=== PATIENT | male | born 1930 | race Caucasian/White ===

== ENCOUNTER 2020-07-15 15:17 | Emergency (ER) | payer MEDICARE, BC ==
[~2020-07-15] VITALS: Ht 170.2 cm; Wt 74.0 kg
[~2020-07-15 15:17] MED LIST: ASPI81TA52 PO; ATOR10TA PO; IBUP-1984 PO; METO25TA6 PO; ROPI1TAB2 PO; ZOLP10TA5 PO
[2020-07-15 16:05] LABS: BASOPHILS # (AUTO) 0.1 X10'3 (0-0.2); BASOPHILS % (AUTO) 1.2 % (0-1); EOSINOPHILS # (AUTO) 0.3 X10'3 (0-0.9); EOSINOPHILS % (AUTO) 4.7 % (0-6); HEMATOCRIT 47.2 % (42.0-52.0); HEMOGLOBIN 15.9 g/dl (14.0-17.9); LYMPHOCYTES # (AUTO) 1.8 X10'3 (1.1-4.8); LYMPHOCYTES % (AUTO) 26.5 % (21-51); MEAN CORPUSCULAR HEMOGLOBIN 32.8 PG (27.0-31.0); MEAN CORPUSCULAR HGB CONC 33.6 g/dL (33.0-36.5); MEAN CORPUSCULAR VOLUME 97.7 FL (78-98); MEAN PLATELET VOLUME 8.1 FL (7.4-10.4); MONOCYTES # (AUTO) 0.6 X10'3 (0-0.9); MONOCYTES % (AUTO) 9.3 % (2-12); NEUTROPHILS % (AUTO) 58.3 % (42-75); PLATELET COUNT 148 X10'3 (140-440); RED BLOOD COUNT 4.83 X10'6 (4.70-6.10); RED CELL DISTRIBUTION WIDTH 14.1 % (11.5-14.5); WHITE BLOOD COUNT 6.9 X10'3 (4.5-11.0)
[2020-07-15] MEDS ORDERED: metoprolol tartrate 1mg/ml inj IV ONE (16:25)
[2020-07-15 17:04] LABS: ALANINE AMINOTRANSFERASE 27 U/L (12-78); ALBUMIN 4.2 G/DL (3.4-5.0); ALBUMIN/GLOBULIN RATIO 1.1 (1.1-1.5); ALKALINE PHOSPHATASE 155 IU/L (46-116); ANION GAP 10 (8-16); ASPARTATE AMINO TRANSFERASE 25 U/L (10-37); BILIRUBIN,TOTAL 0.5 MG/DL (0.1-1.0); BLOOD UREA NITROGEN 19 MG/DL (7-18); CALCIUM 9.1 MG/DL (8.5-10.1); CHLORIDE 106 MMOL/L (99-107); CREATININE 1.46 MG/DL (0.60-1.10); GLUCOSE 102 MG/DL (70-104); POTASSIUM 4.1 MMOL/L (3.5-5.1); SODIUM 141 MMOL/L (135-145); TOTAL CARBON DIOXIDE 25.1 MMOL/L (24-32); TOTAL PROTEIN 8.1 G/DL (6.4-8.2); eGFR 46 ML/MIN
[2020-07-15] MEDS ORDERED: APIX5TAB3 PO (18:12)
[2020-07-15] MEDS ORDERED: METO-467 PO (18:12)
[2020-07-15] MEDS ORDERED: apixaban 5mg tablet PO STA (18:13)
[2020-07-15 18:36] VITALS: BP 106/67
== END 2020-07-15 18:38 | disposition home or self-care (01) ==
LOC: ER 15:18
DX: I48.91 Unspecified atrial fibrillation (principal); E78.00 Pure hypercholesterolemia, unspecified; Z79.82 Long term (current) use of aspirin; Z79.899 Other long term (current) drug therapy
CPT/HCPCS: 36415; 71045; 80053; 83880; 84484; 85025; 93005; 96374; 99285; J3490

== ENCOUNTER 2020-07-31 10:49 | Emergency (ER) | payer MEDICARE, BC ==
[~2020-07-31] VITALS: Ht 167.6 cm; Wt 75.0 kg
[~2020-07-31 10:49] MED LIST changes: +APIX5TAB3 PO; +METO-467 PO
[2020-07-31] MEDS ORDERED: lactulose 20gm/30ml cup PO ONE (11:20)
[2020-07-31] MEDS ORDERED: polyethylene glycol 3350 17gm powd pack PO STA (11:20)
[2020-07-31] MEDS ORDERED: POLY17PO10 PO (12:10)
[2020-07-31 12:21] VITALS: BP 153/66
== END 2020-07-31 12:23 | disposition home or self-care (01) ==
LOC: ER 10:49
DX: K59.00 Constipation, unspecified (principal); E78.00 Pure hypercholesterolemia, unspecified; Z79.82 Long term (current) use of aspirin; Z79.899 Other long term (current) drug therapy
CPT/HCPCS: 74018; 99283